=== PATIENT | male | born 1975 | race Caucasian/White ===

== ENCOUNTER 2017-01-06 05:24 | Emergency (ER) | payer MEDICAID, OTHER ==
[~2017-01-06] VITALS: Ht 177.8 cm; Wt 79.4 kg
[2017-01-06 05:27] VITALS: BP 118/56
--- NOTE | 2017-01-06 05:35 | NUR ---
PATIENT TO ER BED 5
--- NOTE | 2017-01-06 05:40 | NUR ---
41Y/M PATIENT PRESENTS TO ED WITH C/O N/V/D . PT STATES S/P EATING RAW FISH , AT 1700HOURS, NOW WITH N/V, DIARRHEA , AND ABD PAIN.; SKIN IS PINK/WARM/DRY; AAOX4 WITH EVEN AND STEADY GAIT; LUNGS CLEAR BL; HR EVEN AND REGULAR; PT DENIES ANY FEVER, CP, SOB, OR COUGH AT THIS TIME; PATIENT STATES PAIN OF 6/10 AT THIS TIME; VSS; PATIENT POSITIONED FOR COMFORT; HOB ELEVATED; BEDRAILS UP X2; BED DOWN. ER MD MADE AWARE OF PT STATUS.
--- NOTE | 2017-01-06 05:40 | NUR ---
Patient being evaluated by at bedside.
--- NOTE | 2017-01-06 05:52 | NUR ---
Patient discharged with v/s stable. Written and verbal after care instructions given and explained. Patient alert, oriented and verbalized understanding of instructions. Ambulatory with steady gait. All questions addressed prior to discharge. ID band removed. Patient advised to follow up with PMD. Rx of ZOFRAN ODT 4 MG given. Patient educated on indication of medication including possible reaction and side effects. Opportunity to ask questions provided and answered.
[2017-01-06 05:54] VITALS: BP 118/56
== END 2017-01-06 05:52 | disposition home or self-care (01) ==
LOC: MED 05:24
DX: T61.91XA Toxic effect of unspecified seafood, accidental (unintentional), initial encounter (principal); J45.909 Unspecified asthma, uncomplicated; I10 Essential (primary) hypertension; Y92.89 Other specified places as the place of occurrence of the external cause
CPT/HCPCS: 99283

== ENCOUNTER 2021-07-16 08:42 | Emergency (ER) | payer OTHER ==
[~2021-07-16] VITALS: Ht 162.6 cm; Wt 77.6 kg
[2021-07-16 08:47] VITALS: BP 119/80
--- NOTE | 2021-07-16 09:57 | NUR ---
PT AMBULATED TO CT WITH RADIOLOGY STAFF.
[2021-07-16 10:01] LABS: BILIRUBIN,URINE NEGATIVE (NEGATIVE); BLOOD, URINE TRACE-L (NEGATIVE); COLOR,URINE YELLOW (YELLOW); LEUKOCYTE ESTERASE ,URINE NEGATIVE (NEGATIVE); NITRITE, URINE NEGATIVE (NEGATIVE); PH,URINE 6.5 (5.0-9.0); UGLUCOSE NEGATIVE (NEGATIVE)
[2021-07-16 10:01] LABS: BASOPHILS # (AUTO) 0.1 K/uL (0.00-0.22); EOSINOPHILS # (AUTO) 0.1 K/uL (0-0.4); EOSINOPHILS % (AUTO) 2.4 % (0.0-4.0); HEMATOCRIT 44.7 % (36-52); HEMOGLOBIN 14.9 g/dL (12.0-18.0); LYMPHOCYTES # (AUTO) 1.7 K/uL (2.0-11.5); LYMPHOCYTES % (AUTO) 31.1 % (20.5-51.1); MEAN CORPUSCULAR HEMOGLOBIN 27 pg (27-31); MEAN CORPUSCULAR HGB CONC 33 g/dL (33-37); MEAN CORPUSCULAR VOLUME 81.5 fL (80-94); MONOCYTES # (AUTO) 0.5 K/uL (0.8-1.0); MONOCYTES % (AUTO) 8.5 % (1.7-9.3); NEUTROPHILS # (AUTO) 3.1 K/uL (1.8-7.7); PLATELET COUNT (AUTO) 371 K/uL (140-450); RED BLOOD CELL COUNT(AUTO) 5.48 MIL/uL (4.20-6.10); WHITE BLOOD COUNT (AUTO) 5.5 K/uL (4.8-10.8)
--- NOTE | 2021-07-16 10:04 | NUR ---
PT BROUGHT BACK FROM CT.
[2021-07-16 10:18] LABS: ALBUMIN 4.5 g/dL (3.4-5.0); ANION GAP 12.1 (8-16); CARBON DIOXIDE 30.7 mmol/L (21-32); CREATININE 0.9 mg/dL (0.6-1.3); POTASSIUM 4.8 mmol/L (3.5-5.1); TOTAL BILIRUBIN 0.5 mg/dL (0.0-1.0)
[2021-07-16 10:19] LABS: APPEARANCE,URINE SLIGHTLY HAZY (CLEAR)
[2021-07-16 10:27] LABS: RBC,URINE 0-5 /HPF (0-5); WBC,URINE NONE SEEN /HPF (0-5)
[2021-07-16 11:33] VITALS: BP 119/70
--- NOTE | 2021-07-16 11:33 | NUR ---
Patient discharged with v/s stable. Written and verbal after care instructions given and explained. Patient verbalized understanding. Ambulatory with steady gait. All questions addressed prior to discharge. Advised to follow up with PMD.
== END 2021-07-16 11:33 | disposition home or self-care (01) ==
LOC: MED 08:42
DX: R10.9 Unspecified abdominal pain (principal); M54.2 Cervicalgia; J45.909 Unspecified asthma, uncomplicated; I10 Essential (primary) hypertension
CPT/HCPCS: 36415; 80053; 81001; 85025; 99284